=== PATIENT | female | born 1950 | race Asian ===

== ENCOUNTER 2017-02-05 18:35 | Emergency (ER) | payer OTHER, BC ==
[~2017-02-05] VITALS: Ht 160 cm; Wt 69.4 kg
[2017-02-05 19:30] LABS: PLATELET COUNT 233 K/uL (152-353)
[2017-02-05 19:35] LABS: POTASSIUM 3.6 mmol/L (3.6-5.2); SODIUM 138 mmol/L (136-145)
[2017-02-05 21:04] VITALS: BP 176/77; TEMP 98.1
== END 2017-02-05 21:07 | disposition home or self-care (01) ==
LOC: ED 18:35
DX: M25.572 Pain in left ankle and joints of left foot (principal)
CPT/HCPCS: 36415; 80053; 84550; 85027; 96372; 99283; J1885

== ENCOUNTER 2019-06-27 09:52 | Outpatient (CLI) | payer OTHER, BC | END 2019-06-27 22:52 | disposition home or self-care (01) | LOC: RAD 09:52 | DX: Z01.810 Encounter for preprocedural cardiovascular examination (principal); Z01.811 Encounter for preprocedural respiratory examination; Z01.812 Encounter for preprocedural laboratory examination ==

== ENCOUNTER 2021-05-01 09:37 | Observation (INO) | payer OTHER ==
[~2021-05-01] VITALS: Ht 160 cm; Wt 63.2 kg
[2021-05-01 10:10] VITALS: BP 176/84; TEMP 98.3; Ht 160 cm; Wt 63.2 kg
[2021-05-01 11:00] LABS: PLATELET COUNT 244 K/uL (152-353)
[2021-05-01 11:09] LABS: POTASSIUM 4.1 mmol/L (3.6-5.2); SODIUM 140 mmol/L (136-145)
[2021-05-01 12:00] VITALS: BP 157/72; TEMP 98.1
[2021-05-01 12:03] LABS: PARTIAL THROMBOPLASTIN TIME 21.2 SECONDS (24.5-33.6)
--- NOTE | 2021-05-01 12:57 | NUR ---
05/01/21 1255 [facility]
--- NOTE | 2021-05-01 14:06 | NUR ---
05/01/21 0950 TO ROOM VIA [facility] TO ROOM 1115 DX CHESTPAIN/HERPES ZOSTER.HX MULTIPLE MYELOMA.ORIENTED TO ROOM CALL LIGHT WITHIN REACH.LABS AND COVID 19 RAPID TEST COLLECTED SENT TO LAB.CC
--- NOTE | 2021-05-01 14:08 | NUR ---
05/01/21 1400 PT SITTING UP IN BED TALKING ON PHONE SMILING,DAUGHTER PRESENT IN ROOM.EXPLAINED TO DAUGHTER TO WEAR GLOVES IF SHE TOUCHES MOM.DAUGHTER VERBALIZED UNDERSTANDING.CC
[2021-05-01 16:00] VITALS: BP 147/62; TEMP 98.1
--- NOTE | 2021-05-01 17:58 | NUR ---
05/01/21 1750 SITTING UP ON SIDE OF BED EATING DINNER DENIES ANY CHEST PAIN.CALL LIGHT WITHIN REACH.CC
--- NOTE | 2021-05-01 18:41 | NUR ---
05/01/21 184 NEURONTIN 100MG GIVEN EARLY DUEM TO DR. PENA ORDERS.CC
[2021-05-01 20:00] VITALS: BP 146/64; TEMP 98.2
--- NOTE | 2021-05-01 23:30 | NUR ---
PATIENT IS RESTING QUIETLY. AT 2100 OINTMENT APPLIED TO WOUNDS AND MEDICATIONS GIVEN. PATIENT HAS BEEN GIVEN GATORAID AND SNACKS. PATIENT REFUSED LOVENOX AND METOPROLOL. PATIENT STATES, "I DONT NEED THAT. MICHELLE NEVER TAKEN THAT BEFORE." THE METALS ANALYST INSTUCTED THE PATIENT ON THE BENIFITS OF TAKING THE MEDIACATIONS AND THE RISKS OF NOT TAKING AND BENIFITS OF TAKING THEM. THE PATIENT STILL REFUSED.
[2021-05-02] VITALS: BP 113/53; TEMP 98
[2021-05-02 02:31] LABS: PLATELET COUNT 221 K/uL (152-353)
[2021-05-02 03:00] LABS: POTASSIUM 4.4 mmol/L (3.6-5.2)
[2021-05-02 04:00] VITALS: BP 109/56; TEMP 97.8
--- NOTE | 2021-05-02 05:20 | NUR ---
PATIENT DENIES ANY JOINT PAIN. NITRO PATCH HELD DUE TO LOW BP. OLD PATCH REMOVED. PATIENT REPORTS NO DISTRESS OR NO DIZZINESS
--- NOTE | 2021-05-02 06:35 | NUR ---
PATIENT IS ESTING QUIETLY, BREATHING IS NON LABORED AND REGULAR
[2021-05-02 08:00] VITALS: BP 135/68; TEMP 97.9
[2021-05-02 12:00] VITALS: BP 164/63; TEMP 97.6
--- NOTE | 2021-05-02 18:20 | NUR ---
PT IV DC'D TIP INTACT NO REDNESS OR SWELLING NOTED. PT TELEMETRY DC'D. PT GIVEN DISCHARGE INSTRUCTIONS AT THIS TIME. PT INSTRUCTED ON TAKING NEURONTIN AND HYDROCODONE. PT VERBALIZES UNDERSTANDING. PT INSTRUCTED ON CONTINUING USE OF ACYCLOVIR CREAM. PT AGIAN VERBALIZES UNDERSTANDING. PT INSTRUCTED TO FOLLOW UP WITH DR. PENA ON MAY 06, 2021 AT 1100 AND KEEP APPT WITH MULTIPLE MYELOMA SPECIALIST IN [place]. PT AGAIN VERBALIZES UNDERSTANDING. PT DC'D VIA W/C AT THIS TIME.
== END 2021-05-03 00:05 | disposition home or self-care (01) ==
LOC: MED/SURG 09:37
PROVIDERS: ADMIT Family Medicine; ATTEND Family Medicine
DX: R07.89 Other chest pain (principal); B02.9 Zoster without complications; R53.83 Other fatigue; I11.9 Hypertensive heart disease without heart failure
CPT/HCPCS: 36415; 80053; 82550; 83735; 84100; 84484; 85027; 85610; 85730; 87635; 93005; 96372; 96374; 96375; 99220; G0378; G0379; J1650; J1885; J2920; U0003

== ENCOUNTER 2022-11-20 12:06 | Observation (INO) | payer OTHER ==
[~2022-11-20] VITALS: Ht 160 cm; Wt 60.8 kg
[2022-11-20] VITALS (8 sets, daily range): BP systolic 120–219; BP diastolic 50–87; TEMP 98–98.3; Ht 160 cm; Wt 60.8 kg
[2022-11-20 14:05] LABS: PLATELET COUNT 222 K/uL (152-353)
[2022-11-20 14:39] LABS: PARTIAL THROMBOPLASTIN TIME 24.6 SECONDS (24.5-33.6)
== END 2022-11-20 23:27 | disposition short-term general hospital (02) ==
LOC: ED 12:06 → MED/SURG 15:45
PROVIDERS: Internal Medicine; ADMIT Internal Medicine; ATTEND Internal Medicine
DX: I63.89 Other cerebral infarction (principal); I67.82 Cerebral ischemia; I10 Essential (primary) hypertension; R51.9 Headache, unspecified; M15.8 Other polyosteoarthritis; R29.810 Facial weakness
CPT/HCPCS: 36415; 80053; 85027; 85610; 85730; 87635; 99220; 99284; G0378; U0003